=== PATIENT | male | born 1955 | race Caucasian/White ===

== ENCOUNTER 2018-01-13 15:53 | Observation (INO) | payer OTHER ==
[~2018-01-13] VITALS: Ht 175.3 cm; Wt 120.2 kg
[~2018-01-13 15:53] MED LIST: ASPIRIN81 MG; CLONAZEPAM0.5 MG PO; HUMULIN R100 UNIT/2 SC; NOVOLIN N100 UNIT/1 SQ; PANTOPRAZOLE SO40 MG PO; PRILOSEC40 MG; VASOTEC10 M1 PO; ZOLOFT50 MG PO
[2018-01-13 16:28] LABS: BASOPHILS # (AUTO) 0.1 (0.0-0.1); BASOPHILS % 0.6 % (0.0-1.0); EOSINOPHILS # (AUTO) 0.3 (0.0-0.4); EOSINOPHILS % 3.3 % (0.0-6.0); HEMATOCRIT 45.8 % (38.2-49.6); HEMOGLOBIN 15.9 g/dL (14.0-18.0); LYMPHOCYTES # (AUTO) 1.3 (1.0-3.2); LYMPHOCYTES % 15.6 % (18.0-39.1); MEAN CORPUSCULAR HGB CONC 34.7 g/dL (31-35); MEAN CORPUSCULAR VOLUME 86.4 fL (81-99); MONOCYTES # (AUTO) 0.8 (0.2-0.8); MONOCYTES % 9.7 % (4.4-11.3); NEUTROPHILS # (AUTO) 5.8 (2.1-6.9); NEUTROPHILS % 70.4 % (38.7-80.0); PLATELET COUNT 324 x10e3/uL (140-360); RED CELL DISTRIBUTION WIDTH 12.4 % (11.7-14.4)
[2018-01-13] MEDS ORDERED: SODIUM CHLORIDE 0.9% 1000ML 1,000 ML IV ONE (16:30)
[2018-01-13 16:45] LABS: ALANINE AMINOTRANSFERASE 27 IU/L (0-55); ALBUMIN/GLOBULIN RATIO 0.8 (0.8-2.0); ALKALINE PHOSPHATASE 92 IU/L (40-150); ANION GAP 13.3 mmol/L (8-16); BLOOD UREA NITROGEN 14 mg/dL (7-26); BUN/CREATININE RATIO 13 (6-25); CALCIUM 9.5 mg/dL (8.4-10.2); CARBON DIOXIDE 27 mmol/L (22-29); CHLORIDE 92 mmol/L (98-107); CHOL/HDL RATIO 4.4 (3.9-4.7); CHOLESTEROL 273 MD/DL (0-199); CREATININE, SERUM 1.09 mg/dL (0.72-1.25); EST GLOMERULAR FILTRATION RATE > 60 ML/MIN (60-); GLUCOSE 198 mg/dL (74-118); HDL CHOLESTEROL 62 MG/DL (40-60); LDL CHOLESTEROL 184 MG/DL (60-130); MAGNESIUM 1.3 MG/DL (1.3-2.1); PHOSPHORUS 2.9 MG/DL (2.3-4.7); POTASSIUM 5.3 mmol/L (3.5-5.1); SODIUM 127 mmol/L (136-145); TRIGLYCERIDES 136 MG/DL (0-149)
[2018-01-13 17:00] LABS: B-TYPE NATRIURETIC PEPTIDE2 32.7 pg/mL (0-100)
--- NOTE | 2018-01-13 17:17 | Diagnostic Imaging Report ---
History:Dizziness, history of lesion Comparison studies:None Technique: Axial images were obtained from the skull base to the vertex. Coronal and sagittal images reconstructed from the axial data. Intravenous contrast: None Dose modulation, iterative reconstruction, and/or weight based adjustment of the mA/kV was utilized to reduce the radiation dose to as low as reasonably achievable. Findings: Scalp/skull: No abnormalities. Extra-axial spaces: No masses. No fluid collections. Brain sulci: Mildly prominent. Ventricles: Mild compensatory dilatation. No hydrocephalus. Parenchyma: No abnormal densities. No masses, hemorrhage, acute or chronic cortical vascular insults. Sellar/suprasellar region: No abnormalities. Craniocervical junction: Patent foramen magnum. No Chiari one malformation. Incidental findings: Atherosclerotic calcifications in the carotid siphons and vertebral arteries . Impression: No acute abnormalities. Chronic findings: 1. Mild generalized volume loss. 2. Mild supratentorial white matter small vessel ischemic changes. Signed by: DR Nima Garcia M.D. on 01/13/2018 5:14 PM
[2018-01-13] MEDS ORDERED: DEXTROSE 50% SYRINGE 50 ML IV PRN (17:30)
[2018-01-13] MEDS ORDERED: SODIUM CHLORIDE FLUSH 10 ML SYR INJ PRN (17:30)
[2018-01-13] MEDS ORDERED: ASPIRIN 81 MG CHEW TAB PO ONE (17:30)
[2018-01-13] MEDS ORDERED: NITROGLYCERIN 0.4 MG SUBL SL PRN (17:30)
[2018-01-13] MEDS ORDERED: PANTOPRAZOLE SO40 MG PO (17:37)
[2018-01-13] MEDS: FAMOTIDINE 20 MG TAB PO SCH (17:41)
--- NOTE | 2018-01-13 17:41 | Diagnostic Imaging Report ---
EXAMINATION: PA and lateral views of the chest. COMPARISON: None CLINICAL HISTORY: Syncope, chest pain, dizziness DISCUSSION: Lines/tubes: None. Lungs: The lungs are well inflated. Ill-defined 1.0 cm nodular density projecting between the posterior aspect of the right seventh and eighth ribs on the frontal view likely represents a nipple shadow. There is no evidence of pneumonia or pulmonary edema. Pleura: There is no pleural effusion or pneumothorax. Heart and mediastinum: Cardiomediastinal silhouette is unremarkable. Pulmonary vasculature is normal. Bones and soft tissues: No acute bony abnormalities. Degenerative changes in the thoracic spine IMPRESSION: No acute cardiopulmonary abnormalities. 1 cm nodular density projecting in the right lower lung likely represents a nipple shadow. Chest PA and lateral with nipple markers may be obtained for further evaluation. Signed by: Dr. Nikolay Munoz M.D. on 01/13/2018 5:37 PM
[2018-01-13] MEDS ORDERED: SIMVASTATIN 40 MG TAB PO SCH (21:00)
[2018-01-13 21:53] VITALS: BP 138/80
[2018-01-14] VITALS (7 sets, daily range): BP systolic 110–164; BP diastolic 67–80
[2018-01-14 04:02] LABS: CREATINE KINASE MB 2.7 ng/mL (0-5.0)
[2018-01-14 05:27] LABS: BASOPHILS % 0.4 % (0.0-1.0); EOSINOPHILS # (AUTO) 0.3 (0.0-0.4); EOSINOPHILS % 3.7 % (0.0-6.0); HEMATOCRIT 41.4 % (38.2-49.6); HEMOGLOBIN 14.3 g/dL (14.0-18.0); LYMPHOCYTES # (AUTO) 1.3 (1.0-3.2); LYMPHOCYTES % 19.7 % (18.0-39.1); MEAN CORPUSCULAR HEMOGLOBIN 30.3 pg (28-32); MEAN CORPUSCULAR HGB CONC 34.5 g/dL (31-35); MEAN CORPUSCULAR VOLUME 87.7 fL (81-99); MONOCYTES # (AUTO) 1.2 (0.2-0.8); MONOCYTES % 18.4 % (4.4-11.3); NEUTROPHILS # (AUTO) 3.8 (2.1-6.9); NEUTROPHILS % 57.2 % (38.7-80.0); PLATELET COUNT 292 x10e3/uL (140-360); RED BLOOD COUNT 4.72 x10e6/uL (4.3-5.7); RED CELL DISTRIBUTION WIDTH 12.5 % (11.7-14.4)
[2018-01-14 05:42] LABS: ALBUMIN 2.7 g/dL (3.5-5.0); ALBUMIN/GLOBULIN RATIO 0.8 (0.8-2.0); ANION GAP 12.2 mmol/L (8-16); CALCIUM 9.1 mg/dL (8.4-10.2); CREATININE, SERUM 1.22 mg/dL (0.72-1.25); POTASSIUM 5.2 mmol/L (3.5-5.1)
[2018-01-14] MEDS: FAMOTIDINE 20 MG TAB PO SCH (08:23)
[2018-01-14 08:27] LABS: MAGNESIUM 1.4 MG/DL (1.3-2.1)
[2018-01-14] MEDS ORDERED: SOD POLYSTYRENE SULFONATE SUSP 15 GM/60 ML BTL PO ONE (08:30)
[2018-01-14] MEDS ORDERED: SODIUM CHLORIDE 0.9% 1000ML 1,000 ML IV SCH (08:30)
[2018-01-14 08:54] LABS: THYROID STIMULATING HORMONE 2.074 uIU/mL (0.350-4.940)
[2018-01-14] MEDS ORDERED: INSULIN REGULAR, HUMAN 100 UNIT/1 ML 3ML VIAL SQ SCH (09:00)
[2018-01-14] MEDS ORDERED: PANTOPRAZOLE SOD 40 MG TABEC PO SCH (09:00)
[2018-01-14] MEDS ORDERED: ASPIRIN 81 MG ENTERIC COATED PO SCH (09:00)
[2018-01-14] MEDS ORDERED: NPH, HUMAN INSULIN ISOPHANE 100 UNIT/1 ML 3ML VIAL SQ SCH (09:00)
[2018-01-14] MEDS ORDERED: NIFEDIPINE CR 30 MG TAB PO ONE (09:15)
--- NOTE | 2018-01-14 09:32 | Consultation ---
DATE OF CONSULTATION: January 13, 2018 REASON FOR CONSULTATION: Near syncope and chest pain. CONSULTING PHYSICIAN: Dr. Viktor Jacobson. HISTORY OF PRESENT ILLNESS: This is a morbidly obese 62-year-old male that presented with chest pain and near syncope. According to the patient, he was at the stall at [employer] when he felt dizzy like he was going to pass out. He was diaphoretic and had chest pain at the center of his chest with no radiation, on a scale of 5/10. He was scared of driving home, so he called his friend and he was brought to the emergency room for further evaluation. He stated having the same symptom in the past. He also stated he had a bad experience with cardiac stress test and he had refused to do 1 with his PCP also. He denied any palpitation, any shortness of breath or headache. He also complained of visual problem and lightheaded. Troponin times 2 was negative. EKG showed left anterior fascicular block and sinus tachycardia. PAST MEDICAL HISTORY: Hypertension, diabetes, sleep apnea, hyperlipidemia, anxiety and GERD. PAST SURGICAL HISTORY: Cataract surgery. FAMILY HISTORY: Noncontributory. SOCIAL HISTORY: He lives at home alone. No smoking. He drinks occasionally and uses sleep apnea machine at night. MEDICATIONS: See med list. ALLERGIES: HE IS ALLERGIC TO CODEINE AND PENICILLIN. REVIEW OF SYSTEMS: Negative except those mentioned above. It was positive for syncope, chest pain. PHYSICAL EXAMINATION VITAL SIGNS: Temperature 98, heart rate 81, blood pressure 140/80, respirations 18, oxygen saturation 99% on sleep apnea machine. HEENT: Mucous membrane moist. NECK: Supple. LUNGS: Bilateral clear to auscultation. CARDIOVASCULAR: S1, S2 present. ABDOMEN: Soft. NEUROLOGICAL: Intact. EXTREMITIES: With no edema. LABS: Sodium 129, potassium 5.2, chloride 97, CO2 25, BUN 19, creatinine 1.22, glucose 125. White blood cell 6.69, hemoglobin 14.3, hematocrit 41.4, platelet 292,000. IMPRESSION 1. Syncope. 2. Chest pain. 3. Anxiety. 4. Hyponatremia. 5. Hyperkalemia. 6. Diabetes. 7. Hypertension. 8. Obesity. 9. Hyperlipidemia. 10. History of sleep apnea. ASSESSMENT AND PLAN 1. Will go ahead and get serial cardiac enzymes. 2. Will get an echocardiogram. Check magnesium and TSH. 3. Will get bilateral carotid Doppler to rule out any occlusion. 4. Recommended cardiac stress test which he refused due to bad experience in the past at [facility]. Sodium was low. Will put him on IV NS at 100 mL per hour. Potassium high. Will give Kayexalate times 1. Continue his home medications. Further cardiac workup pending clinical course. Thank you for this consultation. Dictated by Rodriguez Barragan NP. Job#: [id number] PAOLA
--- NOTE | 2018-01-14 09:50 | History and Physical ---
PCP: Dr. Kavon John P[employer] BUILDER: Dr. Mundo Woo CHIEF COMPLAINT: Dizziness and near passing out, panic attack. HISTORY OF PRESENT ILLNESS: The patient is a 62-year-old male with recurrent episode of panic disorder. The patient was having a panic attack and was having some dizziness and near passing out but did not lose any consciousness. The patient is stable. Apparently, he was sweating a lot, so he was drinking a lot of water as well. The patient came in with sodium level of 127. Otherwise, the patient is stable. PAST MEDICAL HISTORY: Diabetes type 2 on insulin therapy, obesity, obstructive sleep apnea, hypertension. PAST SURGICAL HISTORY: Noncontributory. HOME MEDICATIONS: List reviewed. ALLERGIES: PENICILLIN AND CODEINE. SOCIAL HISTORY: Patient does not smoke or use alcohol. No recreational drug use. REVIEW OF SYSTEMS: No chest pain. No shortness of breath. No abdominal pain. No nausea or vomiting. PHYSICAL EXAMINATION GENERAL: The patient is in no acute distress. He is awake. VITAL SIGNS: Temperature is 98. Blood pressure 140/80. Pulse rate 81. Respirations 18. HEENT: Normocephalic, atraumatic. Anicteric. NECK: Supple grossly. PULMONARY: Clear. CARDIOVASCULAR: Regular rate and rhythm. ABDOMEN: Soft, obese. EXTREMITIES: No cyanosis or edema. NEURO: No gross focal deficit. LABORATORY: Sodium 129, potassium 5.2, chloride 97, bicarb 25, BUN 19, creatinine 1.2, glucose 125. WBC 6.6, hemoglobin 14.3, hematocrit 41, platelets 292. Glycosylated hemoglobin A1c is 6.1. CT scan of the brain and chest x-ray unremarkable. IMPRESSION 1. Near syncopal episode most likely secondary to panic disorder. 2. Hyponatremia secondary to over consumption of water. The patient's chloride is also low as well. 3. Elevation of potassium. The patient was taking potassium for his leg cramping, thinking it could be his potassium but also he is taking enalapril. PLAN: Discontinue enalapril. Start the patient on nifedipine XL 30 mg daily for blood pressure. Continue his other home medications. Advised the patient to follow up with Dr. Woo for echo check and repeated lab work. The patient was asked to restrict his fluids, cut back on his free water to approximately 70% of his consumption of water. Job#: [id number] MH
--- NOTE | 2018-01-14 11:53 | Discharge Summary ---
FINAL DIAGNOSES 1. Near syncope secondary to panic disorder. The patient is on clonazepam and Zoloft. 2. Low sodium level secondary to over-consumption of water. 3. High potassium secondary to taking potassium and also on enalapril. PLAN: Nifedipine XL 30 mg daily. Stop the enalapril. Resume other home medications. Cut back on the free water consumption to 70%. Discussed with the patient and explained, and the patient understands. HOSPITAL COURSE: The patient is asymptomatic at this time. No complaint. The patient has occasional panic disorder where he is having some dizziness when he had a panic attack. He is on clonazepam. He only takes it once a day on prescription. Will ask the patient to take a little bit more if needed. The patient is otherwise stable. Prescribed the patient clonazepam 0.5 mg q.6 as needed for panic disorder. Job#: [id number]
[2018-01-14] MEDS ORDERED: PROCARDIA XL30 MG PO (13:20)
== END 2018-01-14 14:36 | disposition home or self-care (01) ==
LOC: ER 15:53 → ERHOLD 17:24 → IMCU 18:12
PROVIDERS: ADMIT Internal Medicine; ATTEND Internal Medicine
DX: R55 Syncope and collapse (principal); E87.1 Hypo-osmolality and hyponatremia; I10 Essential (primary) hypertension; E11.9 Type 2 diabetes mellitus without complications; Z88.5 Allergy status to narcotic agent; Z88.0 Allergy status to penicillin; E87.8 Other disorders of electrolyte and fluid balance, not elsewhere classified; R07.9 Chest pain, unspecified; E78.5 Hyperlipidemia, unspecified; F41.0 Panic disorder [episodic paroxysmal anxiety]; Z79.4 Long term (current) use of insulin; E66.9 Obesity, unspecified; G47.33 Obstructive sleep apnea (adult) (pediatric); E87.5 Hyperkalemia; Z68.39 Body mass index [BMI] 39.0-39.9, adult
CPT/HCPCS: 36415 ×2; 70450; 71046; 80053 ×2; 80061; 82550; 82553; 82948 ×2; 83036; 83735 ×2; 83880; 84100; 84443; 84484 ×2; 85025 ×2; 93005 ×2; 93306; 93880; 94660 ×2; 99284; G0378 ×2; J7030 ×2; S0164

== ENCOUNTER 2018-02-02 15:27 | Emergency (ER) | payer OTHER ==
[~2018-02-02] VITALS: Ht 175.3 cm; Wt 120.2 kg
[~2018-02-02 15:27] MED LIST changes: +PROCARDIA XL30 MG PO
[2018-02-02] MEDS ORDERED: KETOROLAC TROMETHAMINE 30 MG/ML VIAL IV STA (15:56)
[2018-02-02] MEDS ORDERED: ONDANSETRON HCL INJ 2 MG/ML VIAL IV STA (15:56)
[2018-02-02] MEDS ORDERED: SODIUM CHLORIDE 0.9% 1000ML 1,000 ML IV SCH (16:00)
--- NOTE | 2018-02-02 18:31 | Diagnostic Imaging Report ---
Examination: CT BRAIN WITHOUT CONTRAST History:Headache. Dizziness. Confusion. Vision blurriness. Comparison studies:Head CT performed January 13, 2018. Technique: Axial images were obtained from the skull base to the vertex. Coronal and sagittal images reconstructed from the axial data. Dose modulation, iterative reconstruction, and/or weight based adjustment of the mA/kV was utilized to reduce the radiation dose to as low as reasonably achievable. Intravenous contrast: None Findings: Scalp: No abnormalities. Bones: No fractures, blastic or lytic lesions. Brain sulci: Mild volume loss for age. Ventricles: No hydrocephalus. Extra-axial space: No abnormalities. Parenchyma: No abnormal densities. No masses, hemorrhage, or acute or chronic cortical based vascular insults.. Sellar/suprasellar region: No abnormalities. Craniocervical junction: Patent foramen magnum. No Chiari one malformation. Incidental findings: Atherosclerotic calcification of the cavernous and supraclinoid internal carotid and V4 segments of the bilateral vertebral arteries. Impression: 1. No new acute intracranial abnormalities. 2. Unchanged mild volume loss when compared to prior head CT performed January 13, 2018. Signed by: Dr. Loren Clements M.D. on 02/02/2018 6:28 PM
[2018-02-02 18:40] LABS: BASOPHILS # (AUTO) 0.1 (0.0-0.1); BASOPHILS % 0.5 % (0.0-1.0); EOSINOPHILS # (AUTO) 0.2 (0.0-0.4); EOSINOPHILS % 1.5 % (0.0-6.0); HEMATOCRIT 46.6 % (38.2-49.6); HEMOGLOBIN 15.5 g/dL (14.0-18.0); LYMPHOCYTES # (AUTO) 1.3 (1.0-3.2); LYMPHOCYTES % 13.5 % (18.0-39.1); MEAN CORPUSCULAR HEMOGLOBIN 29.5 pg (28-32); MEAN CORPUSCULAR HGB CONC 33.3 g/dL (31-35); MEAN CORPUSCULAR VOLUME 88.6 fL (81-99); MONOCYTES # (AUTO) 0.9 (0.2-0.8); MONOCYTES % 9.6 % (4.4-11.3); NEUTROPHILS # (AUTO) 7.2 (2.1-6.9); NEUTROPHILS % 74.5 % (38.7-80.0); PLATELET COUNT 307 x10e3/uL (140-360); RED BLOOD COUNT 5.26 x10e6/uL (4.3-5.7); RED CELL DISTRIBUTION WIDTH 12.7 % (11.7-14.4)
--- NOTE | 2018-02-02 18:41 | Diagnostic Imaging Report ---
Frontal and lateral views of the chest. HISTORY: Headache, high blood pressure COMPARISON: Chest radiograph January 13, 2018 DISCUSSION: Soft tissue attenuation partially limits sensitivity of the exam. Lungs: Low lung volumes result in bibasilar vascular crowding, accentuation of the pulmonary interstitial markings, central pulmonary vasculature, and the cardiac silhouette. Allowing for these limitations, the findings are as follows: Bibasilar atelectasis. Prominence of the central pulmonary interstitial markings, which may be accentuated by the Low lung volumes. No evidence of a consolidative pneumonia. Pleura: No pleural effusion or pneumothorax. Heart and mediastinum: The cardiac silhouette appears within the upper limits of normal. Mild prominence of the central pulmonary vasculature. Bones: No acute osseous lesion. IMPRESSION: 1. Bibasilar atelectasis. 2. No consolidative pneumonia. 3. Prominence of the pulmonary interstitial markings, likely secondary to the low lung volumes, but mild interstitial edema could have a similar appearance. Signed by: Dr. Stanford Lara D.O., M.M.M. on 02/02/2018 6:38 PM
[2018-02-02 18:48] LABS: INR 0.87; PROTHROMBIN TIME 12.7 seconds (11.9-14.5)
[2018-02-02 18:58] LABS: ALANINE AMINOTRANSFERASE 34 IU/L (0-55); ALBUMIN 2.8 g/dL (3.5-5.0); ALBUMIN/GLOBULIN RATIO 0.7 (0.8-2.0); ALKALINE PHOSPHATASE 119 IU/L (40-150); ANION GAP 16.8 mmol/L (8-16); BLOOD UREA NITROGEN 16 mg/dL (7-26); BUN/CREATININE RATIO 15 (6-25); CALCIUM 9.2 mg/dL (8.4-10.2); CARBON DIOXIDE 25 mmol/L (22-29); CHLORIDE 102 mmol/L (98-107); CREATINE KINASE 167 IU/L (30-200); CREATININE, SERUM 1.06 mg/dL (0.72-1.25); EST GLOMERULAR FILTRATION RATE > 60 ML/MIN (60-); GLUCOSE 82 mg/dL (74-118); POTASSIUM 3.8 mmol/L (3.5-5.1); SODIUM 140 mmol/L (136-145)
== END 2018-02-02 20:26 | disposition home or self-care (01) ==
LOC: ER 15:27
DX: I10 Essential (primary) hypertension (principal); R51 Headache; E11.9 Type 2 diabetes mellitus without complications; F41.9 Anxiety disorder, unspecified; F32.9 Major depressive disorder, single episode, unspecified; E78.5 Hyperlipidemia, unspecified; K21.9 Gastro-esophageal reflux disease without esophagitis; Z88.5 Allergy status to narcotic agent; Z88.0 Allergy status to penicillin; Z79.82 Long term (current) use of aspirin; Z79.4 Long term (current) use of insulin
CPT/HCPCS: 36415; 70450; 71046; 80053; 80320; 82550; 82553; 84484; 85025; 85610; 85730; 93005; 99283; J1885; J2405; J7030

== ENCOUNTER 2018-02-03 12:25 | Observation (INO) | payer OTHER ==
[~2018-02-03] VITALS: Ht 175.3 cm; Wt 124.9 kg
[2018-02-03] MEDS ORDERED: SODIUM CHLORIDE 0.9% 500ML 500 ML IV STA (13:01)
[2018-02-03] MEDS ORDERED: DEXAMETHASONE SOD PHOS 10 MG/1 ML VIAL IV ONE (13:15)
[2018-02-03] MEDS ORDERED: ONDANSETRON HCL INJ 2 MG/ML VIAL IV ONE (13:15)
[2018-02-03] MEDS ORDERED: FAMOTIDINE 20 MG/2 ML VIAL IV ONE (13:15)
[2018-02-03] MEDS ORDERED: KETOROLAC TROMETHAMINE 30 MG/ML VIAL IV ONE (13:15)
[2018-02-03] MEDS ORDERED: HYDROCODONE/APAP 5MG-325MG TAB PO ONE (13:15)
[2018-02-03 14:21] LABS: BASOPHILS % 0.5 % (0.0-1.0); EOSINOPHILS # (AUTO) 0.2 (0.0-0.4); HEMATOCRIT 44.8 % (38.2-49.6); HEMOGLOBIN 15.1 g/dL (14.0-18.0); LYMPHOCYTES # (AUTO) 1.1 (1.0-3.2); LYMPHOCYTES % 13.1 % (18.0-39.1); MEAN CORPUSCULAR HEMOGLOBIN 29.8 pg (28-32); MEAN CORPUSCULAR HGB CONC 33.7 g/dL (31-35); MEAN CORPUSCULAR VOLUME 88.4 fL (81-99); MONOCYTES # (AUTO) 0.9 (0.2-0.8); MONOCYTES % 10.6 % (4.4-11.3); NEUTROPHILS # (AUTO) 6.4 (2.1-6.9); NEUTROPHILS % 73.3 % (38.7-80.0); PLATELET COUNT 310 x10e3/uL (140-360); RED BLOOD COUNT 5.07 x10e6/uL (4.3-5.7)
[2018-02-03 14:46] LABS: ALANINE AMINOTRANSFERASE 38 IU/L (0-55); ALBUMIN 2.8 g/dL (3.5-5.0); ALBUMIN/GLOBULIN RATIO 0.7 (0.8-2.0); ALKALINE PHOSPHATASE 122 IU/L (40-150); ANION GAP 14.2 mmol/L (8-16); BLOOD UREA NITROGEN 15 mg/dL (7-26); BUN/CREATININE RATIO 14 (6-25); CALCIUM 9.1 mg/dL (8.4-10.2); CARBON DIOXIDE 27 mmol/L (22-29); CHLORIDE 101 mmol/L (98-107); CREATININE, SERUM 1.08 mg/dL (0.72-1.25); EST GLOMERULAR FILTRATION RATE > 60 ML/MIN (60-); GLUCOSE 79 mg/dL (74-118); POTASSIUM 4.2 mmol/L (3.5-5.1); SODIUM 138 mmol/L (136-145)
[2018-02-03] MEDS ORDERED: HYDROCODONE/APAP 7.5MG-325MG 1 EA TAB PO PRN (18:30)
[2018-02-03] MEDS ORDERED: ZOLPIDEM TARTRATE 5 MG TAB PO PRN (18:30)
[2018-02-03] MEDS ORDERED: CLONIDINE HCL 0.2 MG TAB PO PRN (18:30)
[2018-02-03] MEDS ORDERED: ENALAPRILAT IV INJ 1.25 MG/ML VIAL IV PRN (18:30)
[2018-02-03] MEDS ORDERED: DIPHENHYDRAMINE HCL 25 MG CAP PO PRN (18:30)
[2018-02-03] MEDS ORDERED: MORPHINE SULFATE INJ 4 MG/ML INJ IV PRN (18:30)
[2018-02-03] MEDS ORDERED: IBUPROFEN 400 MG TAB PO PRN (18:30)
[2018-02-03] MEDS ORDERED: DIPHENHYDRAMINE HCL INJ 50 MG/ML VIAL IV PRN (18:30)
[2018-02-03] MEDS ORDERED: SODIUM CHLORIDE FLUSH 10 ML SYR INJ PRN (18:30)
[2018-02-03] MEDS ORDERED: ACETAMINOPHEN 325 MG TAB PO PRN (18:30)
[2018-02-03] MEDS ORDERED: ONDANSETRON HCL INJ 2 MG/ML VIAL IV PRN ×2 (18:30)
[2018-02-03] MEDS ORDERED: PROMETHAZINE 12.5MG/ NACL 0.9% 12.5 MG/50 ML BAG IV PRN (18:30)
[2018-02-03 20:10] VITALS: BP 159/73
[2018-02-03 20:49] VITALS: BP 159/73
[2018-02-03] MEDS ORDERED: DEXTROSE 50% SYRINGE 50 ML IV PRN (22:30)
[2018-02-03] MEDS: INSULIN REGULAR, HUMAN 100 UNIT/1 ML 3ML VIAL SQ SCH (23:05)
[2018-02-04] VITALS (8 sets, daily range): BP systolic 131–191; BP diastolic 61–92
[2018-02-04] MEDS: INSULIN REGULAR, HUMAN 100 UNIT/1 ML 3ML VIAL SQ SCH ×5 (07:30→21:00)
[2018-02-04] MEDS: FAMOTIDINE 20 MG TAB PO SCH ×2 (08:30→17:30)
[2018-02-04] MEDS: SERTRALINE HCL 50 MG TAB PO SCH (09:00)
[2018-02-04] MEDS ORDERED: CLONAZEPAM 0.5 MG TAB PO PRN (09:00)
[2018-02-04] MEDS: NIFEDIPINE CR 30 MG TAB PO SCH (09:00)
[2018-02-04] MEDS: ASPIRIN 81 MG CHEW TAB PO SCH (09:00)
[2018-02-04] MEDS ORDERED: METOPROLOL TARTRATE 25 MG TAB PO SCH (09:00)
[2018-02-04] MEDS: NPH, HUMAN INSULIN ISOPHANE 100 UNIT/1 ML 3ML VIAL SQ SCH ×2 (09:15→21:00)
[2018-02-04] MEDS ORDERED: INSULIN REGULAR, HUMAN 100 UNIT/1 ML 3ML VIAL SQ SCH ×2 (09:30→10:15)
--- NOTE | 2018-02-04 09:42 | History and Physical ---
The patient was placed in observation on February 03, 2018. CHIEF COMPLAINT: Intractable headaches. HISTORY: The patient is a 62-year-old male very confused with his home medications for blood pressure. The patient came in with high blood pressure and . The patient is otherwise stable. He does have diabetes, type 2, on insulin therapy. He has obstructive sleep apnea. The patient is stable at this time. No headaches. PAST MEDICAL HISTORY: Hypertension, diabetes type 2, on insulin therapy, morbid obesity, obstructive sleep apnea, reflux. PAST SURGICAL HISTORY: Noncontributory. SOCIAL HISTORY: The patient does not smoke. No recreational drugs. ALLERGIES: PENICILLIN AND CODEINE. HOME MEDICATIONS: List will be reviewed and adjusted. PHYSICAL EXAMINATION VITAL SIGNS: Temperature is 98, blood pressure 191/92, pulse rate 97, respirations 18. GENERAL: The patient is not in acute distress. He is awake. HEENT: Normocephalic, atraumatic and anicteric. NECK: Supple. PULMONARY: Diminished breath sounds bilaterally. No wheezing or rales. CARDIOVASCULAR: Regular rate and rhythm. ABDOMEN: Moderately obese. EXTREMITIES: No cyanosis or edema. NEUROLOGIC: No focal deficits. LABORATORY: Sodium is 138, potassium 4.2, chloride 101, bicarb 27, BUN 15, creatinine 1.08, glucose 129. WBC 8.7, hemoglobin 15, hematocrit 45, and platelets are 311,000. Imaging tests otherwise unremarkable. IMPRESSION 1. Hypertensive urgency. 2. Headaches. 3. Obstructive sleep apnea: May cause increase in heart rate and elevated blood pressure. PLAN: Adjust the patient's home medications. Discontinue clonidine and enalapril. Continue with nifedipine XL 30 mg daily. Add lopressor 25 mg b.i.d. Will monitor the patient closely and adjust medications today. Patient should be able to go home within 24-48 hours. Job#: [id number] RI cc:SAMMIE ANDRE MD
[2018-02-04] MEDS: PANTOPRAZOLE SOD 40 MG TABEC PO SCH (09:56)
[2018-02-04] MEDS ORDERED: NOVOLIN R100 UNIT/1 SQ (10:03)
[2018-02-04] MEDS: METOPROLOL TARTRATE 25 MG TAB PO SCH ×2 (11:00→17:30)
--- NOTE | 2018-02-04 14:30 | Diagnostic Imaging Report ---
EXAMINATION: MRI of the cervical spine without contrast HISTORY: Left posterior lateral neck pain. Headache, hypertension COMPARISON: None available TECHNIQUE: Sagittal T1, T2, STIR; axial T2, gradient echo. FINDINGS: Curvature: Normal lordosis. Vertebrae: No evidence of neoplasm, infection, or fracture. Foramen magnum: No mass, Chiari malformation, or basilar invagination. Spinal Cord: Normal size and signal intensity. Soft Tissues: Approximately 3 times 2.4 cm well-circumscribed, low T1 and high T2 signal intensity along the anterior margin of the superficial lobe/hip of the left parotid gland. Degenerative changes: C2-C3: Bilateral facet arthrosis without stenoses C3-C4: Disc osteophyte complex formation, bilateral uncovertebral and facet arthrosis. Severe bilateral foraminal stenosis. Compression upon the exiting C4 nerve roots cannot be excluded. Mild canal stenosis. C4-C5: Disc osteophyte compresses formation, bilateral uncovertebral and facet arthrosis. Minimal canal and moderate foraminal stenosis. C5-C6: Facet arthrosis without stenosis C6-C7: Asymmetric to left disc osteophyte, uncovertebral and facet arthrosis. Severe left foraminal stenosis and compression upon the exiting left C7 nerve root cannot be excluded. C7-T1: Facet arthroses without stenoses. IMPRESSION: 1. Partially visualized well-circumscribed mass in the left parotid gland, the differential diagnosis would include benign mixed tumor versus Warthin's tumor. 2. Severe degenerative foraminal stenoses bilaterally at C3-C4 and on the left at C6-7. 3. Mild degenerative canal and moderate bilateral foraminal stenoses at C4-C5. Signed by: Dr. Haydee Burks M.D. on 02/04/2018 2:27 PM
--- NOTE | 2018-02-04 14:31 | Diagnostic Imaging Report ---
EXAMINATION: MRI of the brain without contrast. HISTORY: Headache, hypertension, diabetes COMPARISON: Head CT on 02/02/2018 TECHNIQUE: Sagittal T2; axial DWI, T2, FLAIR, T1-IR, T2 gradient echo; coronal FLAIR. IMAGE QUALITY: Adequate. FINDINGS: Parenchyma: 1. Periventricular white matter and central jackeline T2/FLAIR hyperintense foci, most likely nonspecific chronic microvascular changes. 2. No mass, hemorrhage, acute or chronic infarcts. Skull: Unremarkable. Vessels: Expected flow voids present in the major arteries and dural sinuses. Extra-axial spaces: No abnormal signal intensity or mass effect. Brain volume: Mild generalized volume loss. Ventricles: No hydrocephalus or displacement. Foramen magnum: Unremarkable. Sella: Unremarkable. Paranasal / mastoid sinuses: Minimal mucosal inflammatory thickening of the bilateral maxillary sinuses. IMPRESSION: 1. No acute infarcts or intracranial hemorrhage. 2. Mild chronic microvascular ischemic changes. 3. Partially visualized mass in the left parotid gland, the differential diagnosis would include benign mixed tumor versus Denton's tumor Signed by: Dr. Haydee Burks M.D. on 02/04/2018 2:28 PM
[2018-02-04] MEDS ORDERED: DICLOFENAC SOD 50 MG TAB PO PRN (16:15)
--- NOTE | 2018-02-04 23:51 | Consultation ---
DATE OF CONSULTATION: February 04, 2018 NEUROLOGY CONSULT NOTE HISTORY OF PRESENT ILLNESS: Mr. Venegas is a 62-year-old right-hand dominant man with past medical history significant for hypertension, hyperlipidemia, diabetes mellitus type 2, and obstructive sleep apnea admitted to [facility] on February 03, 2018 with hypertensive urgency and headache. It should be noted, the patient has had multiple emergency center visits for the same symptoms over the past 3 or 4 weeks. Mr. Venegas describes his headache as follows: The pain is present over the left side of the head, never the right. The pain is described as throbbing and pressure and is rated a 10 out of 10. Associated with the headache are photophobia, phonophobia, nausea without vomiting, dizziness, which is further described as a vertiginous sensation and confusion/disorientation. In addition to these symptoms, Mr. Venegas endorses blurred vision in the left eye, but the patient attributes this to the presence of a cataract, which needs to be removed. The headaches described above, may last for several hours. Triggers are unknown. The patient reports being given multiple medications in the emergency center on February 03, 2018, which did improve his headache. However, he does not know which medications were administered or which medications improved his headache. The patient does not report a personal history nor family history of migraines or other primary headache disorders. REVIEW OF SYSTEMS: Nausea without vomiting, frequent urination, confusion, blurred vision of the left eye, headache, vertigo, photophobia, phonophobia. Otherwise, the 12-point review of systems negative. PAST MEDICAL HISTORY: Hypertension, hyperlipidemia, diabetes mellitus type 2, gastroesophageal reflux disease, mixed depression/anxiety disorder, obstructive sleep apnea. PAST SURGICAL HISTORY: Right cataract removal, multiple sleep studies. PAST HOSPITALIZATIONS: Surgeries/procedures as listed, chest pain in January 2018. FAMILY MEDICAL HISTORY: The patient's paternal and maternal grandparents are . The paternal grandfather had diabetes mellitus. The paternal grandmother had coronary artery disease. The maternal grandfather's medical history is unknown. The maternal grandmother is from liver cancer. Mr. Venegas's father is from renal failure. He had coronary artery disease as well. The patient's mother is from renal failure. Mr. Venegas has 3 siblings, 2 sisters and 1 brother, all of whom are alive. Each of his siblings has issues with substance abuse. The patient has no biological children. SOCIAL HISTORY: Mr. Venegas is . He is on disability. The patient endorses a prior history of tobacco use, but quit smoking cigarettes 5 years ago. He does endorse heavy alcohol use. The patient reports drinking 6 to 8 beers per day, as well as a bottle of [place] per day. The patient does report remote use of marijuana and cocaine, but does not use or recreational drugs at present. HOME MEDICATIONS: Please see the list of home medications available in the electronic medical record. ALLERGIES: PENICILLIN, CODEINE. NO KNOWN FOOD ALLERGIES. NO KNOWN ALLERGIES TO LATEX. NO KNOWN ALLERGIES TO IODINE OR OTHER CONTRAST MATERIALS. PHYSICAL EXAMINATION VITAL SIGNS: Height 69 inches, weight 271 pounds. BMI 40.0 kg per meter squared. Blood pressure 142/81 mmHg. Pulse 76 beats per minute. Respiratory rate 20 breaths per minute. Oxygen saturation 99% on room air. GENERAL: The patient is awake and alert. Does not appear distressed. Morbidly obese. HEENT: Normocephalic, atraumatic. Pupils are equal, round, and reactive to light. Moist mucous membranes. NECK: Supple. No appreciable thyromegaly. No appreciable carotid bruits. CARDIOVASCULAR: S1, S2, regular rate and rhythm. No murmurs rubs or gallops. RESPIRATORY: Clear to auscultation bilaterally. No wheezes, rhonchi or rales. EXTREMITIES: The skin is warm and dry. No clubbing or cyanosis. There is trace pretibial pitting edema present. The posterior tibial and dorsalis pedis pulses are 1+ and symmetric. SKIN: No rashes or lesions. NEUROLOGIC Memory/Attention: The patient is awake and alert. Oriented to person, place, time, and situation. Cranial Nerves: Cranial nerve I--not tested. Cranial nerve II, III, IV, and --pupils are equal and round, react briskly to light (from 4 mm to 2 mm). Extraocular movements intact, no nystagmus. Cranial nerve V--sensation to light touch and pinprick is intact in the bilateral V1 through V3 distributions. Strength in the temporalis and masseter muscles is within normal limits. Cranial nerve VII--the face is symmetric as are all facial movements. Strength is within normal limits. Cranial nerve VIII--hearing is intact to finger rub bilaterally. Cranial nerve IX, X--the soft palate elevates equally and symmetrically. Cranial nerve XI--normal strength to the bilateral sternocleidomastoid and trapezius muscles. Cranial nerve XII--the tongue protrudes midline and moves symmetrically from side to side. Strength: Bulk is normal. Strength is 5/5 in the bilateral deltoids, biceps, triceps, wrist flexors, and extensors, finger flexors and extensors, intrinsic hand muscles, hip flexors knee flexors and extensors ankle dorsiflexion and plantar flexion, and intrinsic foot muscles. Tone is normal. DTRs: Deep tendon reflexes are 2+ and symmetric at the triceps biceps brachioradialis, patellas, and Achilles. Plantar responses are flexor bilaterally. Sensation: Sensation is intact to light touch and pinprick in both arms and both legs. Cerebellar: Vdomhs-xnsw-ciemyp and heel-bhardwaj movements are intact without dysmetria or other impairment. Gait: Deferred. Speech: Spontaneous speech is normal without appreciable dysarthria or aphasia. Repetition is intact. Involuntary Movements: None. Pronator Drift: None. LABORATORY DATA: The patient's comprehensive metabolic panel is significant for a mildly elevated AST of 39, albumin of 2.0, and globulin of 4.1. Patient's serum glucose has ranged from 79 to 372 within the past 24 hours. The CBC with differential and platelets reveals a white blood count of 8.59 with 73.3% neutrophils, 13.1% lymphocytes, 10.6% monocytes, 2.0% eosinophils, and 0.5% basophils. The hemoglobin and hematocrit are 15.1 and 44.8, respectively. The platelet count is 310,000. DIAGNOSTIC STUDIES 1. MRI of the cervical spine without contrast, 02/04/2018: 1. Partially visualized low circumscribed in the left parotid gland, the differential diagnosis would include benign mixed tumor versus Warthin's tumor. 2. Severe degenerative foraminal stenosis bilaterally at C3-C4 and on the left at C6-C7. 3. Mild degenerative canal and moderate bilateral foraminal stenosis at C4-C5. 4. MRI of brain without contrast, 02/04/2018: On my review, there is no evidence of recent large territorial ischemia, hemorrhage, mass or mass effect. Cerebral volumes are appropriate for age. A mass in the left parotid gland is observed. There are scattered nonspecific T2 4/FLAIR hyperintense foci of the supratentorial and infratentorial white matter, compatible with moderate chronic small-vessel ischemic disease. ASSESSMENT AND PLAN: Mr. Venegas is a 62-year-old right-hand dominant man with past medical history as detailed, admitted with poorly controlled hypertension and headache. At present, the patient's neurological examination is nonfocal. His laboratory data and other diagnostic studies have been reviewed and are documented above. Mr. Venegas's headaches as described by the patient, are compatible with diagnosis of common migraine, not intractable, without status migrainosus. Recommendations for treatment are as follows: 1. Treatment with triptan medications is contraindicated in individuals with coronary artery disease or its equivalent. Therefore, treatment with triptan medication is not recommended for Mr. Venegas. The patient will be prescribed diclofenac 50 mg by mouth every 8 hours as needed for headache. Should the patient not respond to this medication, he may be prescribed either Fioricet or Fiorinal 1 tablet by mouth every 8 hours as needed for severe headache. 2. Mr. Venegas should follow up in my office as an outpatient for further evaluation and treatment of his headaches. 3. Defer treatment of the remaining medical comorbidities to the primary and other services following the patient. Thank you for this consultation. I will continue to follow the patient while he remains in the hospital. TIME SPENT: 70 minutes. Job#: [id number]
[2018-02-05] VITALS: BP 133/68
[2018-02-05] MEDS ORDERED: DICLOFENAC SODI50 MG PO (00:37)
[2018-02-05 04:00] VITALS: BP 129/59
[2018-02-05] MEDS: INSULIN REGULAR, HUMAN 100 UNIT/1 ML 3ML VIAL SQ SCH ×3 (07:30→11:30)
[2018-02-05 08:00] VITALS: BP 147/75
[2018-02-05] MEDS: PANTOPRAZOLE SOD 40 MG TABEC PO SCH (08:00)
[2018-02-05] MEDS: FAMOTIDINE 20 MG TAB PO SCH (08:00)
[2018-02-05 08:21] VITALS: BP 147/75
[2018-02-05] MEDS: ASPIRIN 81 MG CHEW TAB PO SCH (08:57)
[2018-02-05] MEDS: SERTRALINE HCL 50 MG TAB PO SCH (08:58)
[2018-02-05] MEDS: METOPROLOL TARTRATE 25 MG TAB PO SCH (08:58)
[2018-02-05] MEDS: NIFEDIPINE CR 30 MG TAB PO SCH (08:58)
[2018-02-05] MEDS: NPH, HUMAN INSULIN ISOPHANE 100 UNIT/1 ML 3ML VIAL SQ SCH (09:05)
--- NOTE | 2018-02-05 10:13 | Discharge Summary ---
PCP: Dr. Kavon John WATER PROJECT ENGINEER: Dr. Diana Bray The patient was in observation. FINAL DIAGNOSES 1. Hypertensive urgency secondary to migraine headaches. 2. Hypertension, baseline, uncontrolled. A 63-year-old male on Procardia XL 30 mg daily. The patient came in with systolic blood pressure over 200. He was having a migraine headache. Patient is stable. He is doing much better now. Pressure systolic 147/75 and heart rate 71. Patient is headache free. The patient will go home and continue his Procardia 30 mg daily. He was initiated on metoprolol tartrate 25 mg twice a day. Patient is stable and discharged home today. Follow up with Dr. Kavon John next week. Patient is stable for discharge. Job#: [id number] BRY
[2018-02-05 12:42] VITALS: BP 165/79
[2018-02-05] MEDS ORDERED: METOPROLOL TART25 MG PO (13:11)
== END 2018-02-05 14:00 | disposition home or self-care (01) ==
LOC: ER 12:25 → ERHOLD 19:59 → MED/SURG 20:09
PROVIDERS: ADMIT Internal Medicine; ATTEND Internal Medicine
DX: G43.009 Migraine without aura, not intractable, without status migrainosus (principal); I16.0 Hypertensive urgency; I10 Essential (primary) hypertension; E11.9 Type 2 diabetes mellitus without complications; Z79.4 Long term (current) use of insulin; G47.33 Obstructive sleep apnea (adult) (pediatric); E66.01 Morbid (severe) obesity due to excess calories; Z88.5 Allergy status to narcotic agent; Z88.0 Allergy status to penicillin; E78.5 Hyperlipidemia, unspecified; K21.9 Gastro-esophageal reflux disease without esophagitis; F41.8 Other specified anxiety disorders
CPT/HCPCS: 36415 ×3; 70551; 72141; 80053; 82948 ×3; 85025; 85651; 94660; 96372; 99284; G0378 ×3; J1100; J1885; J2405; J7040; S0164

== ENCOUNTER 2018-05-11 10:33 | Emergency (ER) | payer OTHER ==
[~2018-05-11] VITALS: Ht 175.3 cm; Wt 124.7 kg
[~2018-05-11 10:33] MED LIST changes: +DICLOFENAC SODI50 MG PO; +METOPROLOL TART25 MG PO; +NOVOLIN R100 UNIT/1 SQ
[2018-05-11] MEDS ORDERED: KETOROLAC TROMETHAMINE 30 MG/ML VIAL IV STA (10:47)
[2018-05-11] MEDS ORDERED: METOCLOPRAMIDE HCL 10 MG/2ML VIAL IV ONE (11:00)
[2018-05-11] MEDS ORDERED: SODIUM CHLORIDE 0.9% 500ML 500 ML IV ONE (11:00)
[2018-05-11] MEDS ORDERED: DIPHENHYDRAMINE HCL INJ 50 MG/ML VIAL IV ONE (11:00)
--- NOTE | 2018-05-11 12:01 | Diagnostic Imaging Report ---
History:Posterior headache Comparison studies:CT head 02/02/2018 and MRI brain 02/04/2018 Technique: Axial images were obtained from the skull base to the vertex. Coronal and sagittal images reconstructed from the axial data. Intravenous contrast: None Dose modulation, iterative reconstruction, and/or weight based adjustment of the mA/kV was utilized to reduce the radiation dose to as low as reasonably achievable. Findings: Scalp/skull: No abnormalities. Extra-axial spaces: No masses. No fluid collections. Brain sulci: Mildly prominent. Ventricles: Mild compensatory dilatation. No hydrocephalus. Parenchyma: Few hypodensities in the supratentorial white matter and central jackeline are small vessel ischemic changes, better visualized in previous brain MR. No masses, hemorrhage, acute or chronic cortical vascular insults. Sellar/suprasellar region: No abnormalities. Craniocervical junction: Patent foramen magnum. No Chiari one malformation. Incidental findings: Atherosclerotic calcifications in the carotid siphons and vertebral lateral . Impression: No acute abnormalities. Chronic findings: 1. Mild generalized volume loss. 2. Mild supratentorial white matter small vessel ischemic changes. Signed by: DR Nima Garcia M.D. on 05/11/2018 11:58 AM
[2018-05-11 14:46] VITALS: BP 156/85
== END 2018-05-11 15:00 | disposition home or self-care (01) ==
LOC: ER 10:33
DX: G44.89 Other headache syndrome (principal); G43.119 Migraine with aura, intractable, without status migrainosus
CPT/HCPCS: 70450; 99283; J1200; J1885; J2765; J7040

== ENCOUNTER → 2021-02-22 | Day surgery (SDC) | payer MEDICARE, OTHER ==
[2021-02-20 14:26] LABS: BASOPHILS % 0.7 % (0.0-1.0); EOSINOPHILS # (AUTO) 0.2 (0.0-0.4); EOSINOPHILS % 3.7 % (0.0-6.0); HEMATOCRIT 41.5 % (38.2-49.6); HEMOGLOBIN 13.6 g/dL (14.0-18.0); LYMPHOCYTES # (AUTO) 1.2 (1.0-3.2); LYMPHOCYTES % 21.1 % (18.0-39.1); MEAN CORPUSCULAR HEMOGLOBIN 29.4 pg (28-32); MEAN CORPUSCULAR HGB CONC 32.8 g/dL (31-35); MEAN CORPUSCULAR VOLUME 89.8 fL (81-99); MONOCYTES # (AUTO) 0.6 (0.2-0.8); MONOCYTES % 10.1 % (4.4-11.3); NEUTROPHILS # (AUTO) 3.8 (2.1-6.9); NEUTROPHILS % 64.2 % (38.7-80.0); PLATELET COUNT 251 x10e3/uL (140-360); RED BLOOD COUNT 4.62 x10e6/uL (4.3-5.7); RED CELL DISTRIBUTION WIDTH 13.7 % (11.7-14.4)
[2021-02-20 16:15] LABS: ANION GAP 16.9 mmol/L (8-16); CALCIUM 8.6 mg/dL (8.4-10.2); CREATININE, SERUM 1.95 mg/dL (0.72-1.25); POTASSIUM 4.9 mmol/L (3.5-5.1)
[~2021-02-22] MED LIST changes: -ASPIRIN81 MG; +ASPIRIN81 MG PO; +BALANCED SALT SOLN (OPTH) 15 ML BTL IO ONE; +BUPIVACAINE HC 0.75% PF 10ML VIAL INJ ONE; +CYCLOPENTOLATE HCL 2% OPTH SOLN 2 ML BTL OP ONE; +EPINEPHRINE HCL 1:1000 1ML 1 MG/ML AMP ONE; +GATIFLOXACIN(OPTH) 5 ML LIQD ONE; +LIDOCAINE 2% /EPINEPHRINE 20 ML SDV INJ ONE; +LIDOCAINE HCL-PF 4% 40 MG/1 ML 5ML AMP ONE; +PHENYLEPHRINE HCL 2 ML DROPS ONE; +PILOCARPINE HCL(OPTH) 15 ML LIQD ONE; +POVIDONE IODINE 5% (OPTH) 30 ML BTL ONE; +PRILOSEC OTC20 MG PO; +TOBRAMYCIN/DEXAMETHASONE(OPTH) 3.5 GM TUBE ONE
[2021-02-22 10:15] VITALS: BP 162/86
== END | disposition home or self-care (01) ==
LOC: OR 06:55
PROVIDERS: ATTEND Ophthalmology
DX: H25.12 Age-related nuclear cataract, left eye (principal); G47.33 Obstructive sleep apnea (adult) (pediatric); M19.90 Unspecified osteoarthritis, unspecified site; K21.9 Gastro-esophageal reflux disease without esophagitis; K76.0 Fatty (change of) liver, not elsewhere classified; E11.22 Type 2 diabetes mellitus with diabetic chronic kidney disease; I12.9 Hypertensive chronic kidney disease with stage 1 through stage 4 chronic kidney disease, or unspecified chronic kidney disease; N18.9 Chronic kidney disease, unspecified; R53.1 Weakness; F41.9 Anxiety disorder, unspecified; F32.A Depression, unspecified; Z88.6 Allergy status to analgesic agent; Z88.0 Allergy status to penicillin; Z01.810 Encounter for preprocedural cardiovascular examination; Z01.812 Encounter for preprocedural laboratory examination; Z20.822 Contact with and (suspected) exposure to COVID-19; Z79.82 Long term (current) use of aspirin; Z79.4 Long term (current) use of insulin
CPT/HCPCS: 36415 ×2; 66984; 80048; 82948; 85025; 93005; J0171; J2001; U0002